=== PATIENT | female | born 1980 | race Caucasian/White ===

== ENCOUNTER → 2023-01-05 | Outpatient (CLI) | payer MEDICAID | LOC: M WHC 11:36 | PROVIDERS: ATTEND Nurse Practitioner Family | DX: Z12.31 Encounter for screening mammogram for malignant neoplasm of breast (principal) ==

== ENCOUNTER → 2023-01-15 | Outpatient (CLI) | payer MEDICAID | LOC: M WHC 08:19 | PROVIDERS: ATTEND Nurse Practitioner Family | DX: R92.8 Other abnormal and inconclusive findings on diagnostic imaging of breast (principal); N60.02 Solitary cyst of left breast ==

== ENCOUNTER → 2023-01-20 | Outpatient (REF) | payer MEDICAID ==
[2023-01-20 17:26] LABS: BASO # 0.1 10^3/uL (0.0-0.2); BASO % 0.7 % (0.0-1.0); EOS # 0.2 10^3/uL (0.0-0.5); EOS % 2.2 % (0.0-3.0); HEMATOCRIT 42.6 % (36.0-47.0); HEMOGLOBIN 14.7 g/dl (12.0-15.5); LYMPH # 2.7 10^3/uL (1.5-5.0); LYMPH % 35.8 % (24.0-44.0); MEAN CORPUSCULAR HEMOGLOBIN 30.9 pg (27.0-33.0); MEAN CORPUSCULAR HGB CONC 34.5 g/dl (32.0-36.5); MEAN CORPUSCULAR VOLUME 89.5 fl (80.0-96.0); MONO # 0.6 10^3/uL (0.0-0.8); MONO % 8.6 % (2.0-8.0); NEUTROPHILS # 3.9 10^3/uL (1.5-8.5); NEUTROPHILS % 51.9 % (36.0-66.0); PLATELET COUNT, AUTOMATED 199 10^3/uL (150-450); RED BLOOD COUNT 4.76 10^6/uL (4.00-5.40); WHITE BLOOD COUNT 7.4 10^3/uL (4.0-10.0)
[2023-01-20 17:30] LABS: BLOOD UREA NITROGEN 11 MG/DL (9-23); CALCIUM LEVEL 8.8 MG/DL (8.5-10.1); CARBON DIOXIDE LEVEL 27 MMOL/L (20-31); CHLORIDE LEVEL 104 MMOL/L (98-107); CHOLESTEROL LEVEL 161 MG/DL (<200); CHOLESTEROL RISK RATIO 4.87 (<5); CREATININE FOR GFR 0.83 MG/DL (0.55-1.30); GLOMERULAR FILTRATION RATE > 60.0 (>58); GLUCOSE, FASTING 130 MG/DL (60-100); LDL CHOLESTEROL 93.6 MG/DL (<100); POTASSIUM SERUM 3.8 MMOL/L (3.5-5.1); SODIUM LEVEL 141 MMOL/L (136-145); TRIGLYCERIDES LEVEL 172 MG/DL (<150)
[2023-01-20 17:32] LABS: TOTAL 25(OH) VITAMIN D 48.1 NG/ML (20.0-100.0)
[2023-01-20 17:33] LABS: THYROID STIMULATING HORMONE 1.409 uIU/ML (0.55-4.78)
[2023-01-20 17:45] LABS: HEMOGLOBIN A1c 5.8 % (4.0-6.0)
== END ==
LOC: M LAB REF 16:37
PROVIDERS: ATTEND Nurse Practitioner Family
DX: Z11.9 Encounter for screening for infectious and parasitic diseases, unspecified (principal); E55.9 Vitamin D deficiency, unspecified; F41.8 Other specified anxiety disorders; R03.0 Elevated blood-pressure reading, without diagnosis of hypertension; R53.83 Other fatigue

== ENCOUNTER → 2023-04-28 | Outpatient (REF) | payer MEDICAID ==
[2023-04-28 21:26] LABS: CHLAMYDIA DNA AMPLIFICATION NEGATIVE (NEGATIVE); GC DNA AMPLIFICATION NEGATIVE (NEGATIVE)
== END ==
LOC: M SFHCWAGY 16:54
PROVIDERS: ATTEND Nurse Practitioner Family
DX: N73.9 Female pelvic inflammatory disease, unspecified (principal)

== ENCOUNTER → 2023-05-15 | Outpatient (REF) | payer MEDICAID ==
[2023-05-15 14:46] LABS: CHLAMYDIA DNA AMPLIFICATION NEGATIVE (NEGATIVE); GC DNA AMPLIFICATION NEGATIVE (NEGATIVE)
== END ==
LOC: M LAB REF 12:44
PROVIDERS: ATTEND Nurse Practitioner Family
DX: A59.00 Urogenital trichomoniasis, unspecified (principal)

== ENCOUNTER → 2023-07-14 | Outpatient (CLI) | payer MEDICAID | LOC: M WUC 11:51 | PROVIDERS: ATTEND Nurse Practitioner Family | DX: B34.9 Viral infection, unspecified (principal) ==

== ENCOUNTER → 2023-07-30 | Outpatient (REF) | payer MEDICAID ==
[2023-07-30 19:47] LABS: Trichomonas vaginalis (AMP) NOT DETECTED (NEGATIVE)
[2023-07-30 20:11] LABS: GC DNA AMPLIFICATION NEGATIVE (NEGATIVE)
== END ==
LOC: M SFHCWAGY 17:05
PROVIDERS: ATTEND Nurse Practitioner Family
DX: Z11.3 Encounter for screening for infections with a predominantly sexual mode of transmission (principal)

== ENCOUNTER → 2023-09-15 | Outpatient (REF) | payer MEDICAID | LOC: M LAB REF 11:47 | PROVIDERS: ATTEND Nurse Practitioner Family | DX: J06.9 Acute upper respiratory infection, unspecified (principal) ==

== ENCOUNTER 2023-10-07 09:50 | Emergency (ER) | payer MEDICAID ==
[~2023-10-07] VITALS: Ht 157.5 cm; Wt 94.9 kg
[2023-10-07] MEDS ORDERED: ACET-683 PO (10:03)
[2023-10-07] MEDS ORDERED: BUPR-597 PO (10:03)
[2023-10-07] MEDS ORDERED: AMLO1TAB24 PO (10:03)
[2023-10-07 12:03] LABS: BASO # 0.1 10^3/uL (0.0-0.2); BASO % 0.6 % (0.0-1.0); EOS # 0.2 10^3/uL (0.0-0.5); EOS % 2.2 % (0.0-3.0); HEMATOCRIT 43.7 % (36.0-47.0); HEMOGLOBIN 15.1 g/dl (12.0-15.5); LYMPH # 2.9 10^3/uL (1.5-5.0); MEAN CORPUSCULAR HEMOGLOBIN 30.3 pg (27.0-33.0); MEAN CORPUSCULAR HGB CONC 34.6 g/dl (32.0-36.5); MEAN CORPUSCULAR VOLUME 87.8 fl (80.0-96.0); MONO # 0.7 10^3/uL (0.0-0.8); MONO % 8.4 % (2.0-8.0); NEUTROPHILS # 4.4 10^3/uL (1.5-8.5); NEUTROPHILS % 52.2 % (36.0-66.0); PLATELET COUNT, AUTOMATED 196 10^3/uL (150-450); RED BLOOD COUNT 4.98 10^6/uL (4.00-5.40); WHITE BLOOD COUNT 8.3 10^3/uL (4.0-10.0)
[2023-10-07 12:23] LABS: ALBUMIN 3.6 G/DL (3.2-5.2); BILIRUBIN,DIRECT 0.2 MG/DL (<0.4); BILIRUBIN,TOTAL 0.8 MG/DL (0.3-1.2); TOTAL PROTEIN 7.1 G/DL (5.7-8.2)
[2023-10-07] MEDS ORDERED: CIPR-249 PO (13:11)
[2023-10-07 13:20] VITALS: BP 158/90; TEMP 98.3; O2SAT 98
[2023-10-07] MEDS ORDERED: FLON1SPR NARES (13:39)
[2023-10-07] MEDS ORDERED: VITA500C24 PO (13:39)
[2023-10-07] MEDS ORDERED: HOME MED LIST COMPLETE! XX SCH (13:40)
== END 2023-10-07 13:22 | disposition home or self-care (01) ==
LOC: M ED 09:50
DX: N30.90 Cystitis, unspecified without hematuria (principal); I10 Essential (primary) hypertension; F41.9 Anxiety disorder, unspecified; F32.A Depression, unspecified; Z88.0 Allergy status to penicillin; Z79.2 Long term (current) use of antibiotics; Z79.891 Long term (current) use of opiate analgesic; Z79.899 Other long term (current) drug therapy

== ENCOUNTER → 2023-12-21 | Outpatient (CLI) | payer MEDICAID ==
[~2023-12-21] MED LIST: ACET-683 PO; AMLO1TAB24 PO; BUPR-597 PO; CIPR-249 PO; FLON1SPR NARES; VITA500C24 PO
== END ==
LOC: M RAD 10:08
PROVIDERS: ATTEND Nurse Practitioner Family
DX: M79.662 Pain in left lower leg (principal); M79.661 Pain in right lower leg; R60.9 Edema, unspecified; M77.32 Calcaneal spur, left foot

== ENCOUNTER → 2024-01-04 | Outpatient (REF) | payer MEDICAID ==
[2024-01-04 16:53] LABS: APPEARANCE, URINE HAZY (CLEAR); BACTERIA, URINE AUTO 2+ (NEGATIVE); BILIRUBIN, URINE AUTO NEGATIVE (NEGATIVE); BLOOD, URINE BLOOD 1+ (NEGATIVE); COLOR, URINE YELLOW (YELLOW); GLUCOSE, URINE (UA) AUTO 1+ mg/dL (NEGATIVE); KETONE, URINE AUTO NEGATIVE (NEGATIVE); LEUKOCYTE ESTERASE, URINE AUTO 2+ (NEGATIVE); MUCUS, URINE SMALL (NEGATIVE); NITRITE, URINE AUTO POSITIVE (NEGATIVE); PROTEIN, URINE AUTO NEGATIVE (NEGATIVE); RBC, URINE AUTO 7 /HPF (0-3); SPECIFIC GRAVITY URINE AUTO 1.014 (1.002-1.035); SQUAMOUS EPITHELIAL CELL UR AU 3 /HPF (0-6); UROBILINOGEN, URINE AUTO 0.2 mg/dL (0.0-2.0); WBC, URINE AUTO 19 /HPF (0-3)
[2024-01-04 18:18] LABS: Trichomonas vaginalis (AMP) NOT DETECTED (NEGATIVE)
== END ==
LOC: M LAB REF 16:13
PROVIDERS: ATTEND Nurse Practitioner Family
DX: R30.0 Dysuria (principal)

== ENCOUNTER → 2024-01-07 | Outpatient (CLI) | payer MEDICAID | LOC: M WHC 09:20 | PROVIDERS: ATTEND Nurse Practitioner Family | DX: Z12.31 Encounter for screening mammogram for malignant neoplasm of breast (principal); R92.323 Mammographic fibroglandular density, bilateral breasts; R92.8 Other abnormal and inconclusive findings on diagnostic imaging of breast ==

== ENCOUNTER → 2024-01-07 | Outpatient (REF) | payer MEDICAID ==
[2024-01-07 15:08] LABS: Trichomonas vaginalis (AMP) NOT DETECTED (NEGATIVE)
[2024-01-07 15:32] LABS: GC DNA AMPLIFICATION NEGATIVE (NEGATIVE)
[2024-01-09 16:07] LABS: HPV APTIMA Detected (Not Detected)
== END ==
LOC: M SFHCWAGY 12:14
PROVIDERS: ATTEND Nurse Practitioner Family
DX: R30.0 Dysuria (principal); Z12.4 Encounter for screening for malignant neoplasm of cervix

== ENCOUNTER → 2024-02-15 | Outpatient (CLI) | payer MEDICAID | LOC: M WHC 11:20 | PROVIDERS: ATTEND Nurse Practitioner Family | DX: R92.8 Other abnormal and inconclusive findings on diagnostic imaging of breast (principal); N63.41 Unspecified lump in right breast, subareolar ==

== ENCOUNTER → 2024-05-16 | Outpatient (REF) | payer MEDICAID | LOC: M LAB REF 16:33 | PROVIDERS: ATTEND Nurse Practitioner Family | DX: J06.9 Acute upper respiratory infection, unspecified (principal) ==

== ENCOUNTER → 2024-07-08 | Outpatient (REF) | payer MEDICAID ==
[2024-07-08 13:02] LABS: BASO # 0.1 10^3/uL (0.0-0.2); BASO % 0.6 % (0.0-1.0); EOS # 0.1 10^3/uL (0.0-0.5); EOS % 1.7 % (0.0-3.0); HEMOGLOBIN 14.4 g/dl (12.0-15.5); LYMPH # 2.6 10^3/uL (1.5-5.0); LYMPH % 31.2 % (24.0-44.0); MEAN CORPUSCULAR HGB CONC 34.3 g/dl (32.0-36.5); MEAN CORPUSCULAR VOLUME 90.3 fl (80.0-96.0); MONO # 0.8 10^3/uL (0.0-0.8); MONO % 9.2 % (2.0-8.0); NEUTROPHILS # 4.7 10^3/uL (1.5-8.5); NEUTROPHILS % 55.9 % (36.0-66.0); PLATELET COUNT, AUTOMATED 178 10^3/uL (150-450); RED BLOOD COUNT 4.65 10^6/uL (4.00-5.40); WHITE BLOOD COUNT 8.5 10^3/uL (4.0-10.0)
[2024-07-08 13:27] LABS: ALBUMIN 3.7 G/DL (3.2-5.2); ALKALINE PHOSPHATASE 101 U/L (35-104); ALT/SGPT 28 U/L (7.0-40); AST/SGOT 13 U/L (<34); BILIRUBIN,TOTAL 0.4 MG/DL (0.3-1.2); BLOOD UREA NITROGEN 14 MG/DL (9-23); CALCIUM LEVEL 9.2 MG/DL (8.5-10.1); CARBON DIOXIDE LEVEL 28 MMOL/L (20-31); CHLORIDE LEVEL 105 MMOL/L (98-107); CHOLESTEROL LEVEL 189 MG/DL (<200); CHOLESTEROL RISK RATIO 6.27 (<5); GLOMERULAR FILTRATION RATE > 60.0 (>58); GLUCOSE, FASTING 159 MG/DL (60-100); HDL CHOLESTEROL 30.1 MG/DL (>40); LDL CHOLESTEROL 117.3 MG/DL (<100); NON-HDL-C 158.9 MG/DL; POTASSIUM SERUM 4.1 MMOL/L (3.5-5.1); SODIUM LEVEL 141 MMOL/L (136-145); TRIGLYCERIDES LEVEL 208 MG/DL (<150)
== END ==
LOC: M LAB REF 12:25
PROVIDERS: ATTEND Nurse Practitioner Family
DX: E66.9 Obesity, unspecified (principal); F41.8 Other specified anxiety disorders; Z68.36 Body mass index [BMI] 36.0-36.9, adult

== ENCOUNTER → 2024-08-23 | Outpatient (REF) | payer MEDICAID ==
[2024-08-23 17:23] LABS: MAU/CREAT RATIO 42.1 MCG/MG (0.0-30.0)
== END ==
LOC: M LAB REF 15:11
PROVIDERS: ATTEND Nurse Practitioner Family
DX: E11.9 Type 2 diabetes mellitus without complications (principal)

== ENCOUNTER 2024-09-27 15:01 | Emergency (ER) | payer MEDICAID ==
[~2024-09-27] VITALS: Ht 157.5 cm; Wt 92.9 kg
[~2024-09-27 15:01] MED LIST changes: -BUPR-597 PO; +BUPR-766 PO
[2024-09-27 19:58] VITALS: BP 157/94; TEMP 97.4; O2SAT 98
[2024-09-27] MEDS: predniSONE 20 MG TAB PO ONE (20:08)
[2024-09-27] MEDS: methocarbamoL 500 MG TAB PO ONE (20:08)
[2024-09-27] MEDS: KETOROLAC 30 MG/ML 1ML VIAL IM ONE (20:11)
[2024-09-27] MEDS ORDERED: METH-1164 PO (21:04)
[2024-09-27] MEDS ORDERED: NAPR-837 PO (21:04)
== END 2024-09-27 21:09 | disposition home or self-care (01) ==
LOC: M ED 15:01
DX: M54.40 Lumbago with sciatica, unspecified side (principal); I10 Essential (primary) hypertension; F41.9 Anxiety disorder, unspecified; F32.A Depression, unspecified; Z79.899 Other long term (current) drug therapy; Z88.0 Allergy status to penicillin
CPT/HCPCS: 72110; 96372; 99283; J1885; J7512

== ENCOUNTER → 2025-01-19 | Outpatient (CLI) | payer MEDICAID ==
[~2025-01-19] MED LIST changes: +METH-1164 PO; +NAPR-837 PO
== END ==
LOC: M RAD 09:32
PROVIDERS: ATTEND Physical Medicine & Rehabilitation
DX: M54.50 Low back pain, unspecified (principal); R10.9 Unspecified abdominal pain

== ENCOUNTER → 2025-01-24 | Outpatient (CLI) | payer MEDICAID ==
[2025-01-24 14:46] LABS: HIV 1&2 SCREEN NEGATIVE (NEGATIVE)
[2025-01-24 14:54] LABS: HEPATITIS C VIRUS ABY INDEX < 0.02 INDEX (<0.8)
[2025-01-24 15:22] LABS: Trichomonas vaginalis (AMP) NOT DETECTED (NEGATIVE)
[2025-01-24 15:45] LABS: GC DNA AMPLIFICATION NEGATIVE (NEGATIVE)
[2025-01-26 15:47] LABS: HPV APTIMA Not Detected (Not Detected)
== END ==
LOC: M PLALAB 11:00
PROVIDERS: ATTEND Nurse Practitioner Family
DX: Z12.4 Encounter for screening for malignant neoplasm of cervix (principal); R87.610 Atypical squamous cells of undetermined significance on cytologic smear of cervix (ASC-US)

== ENCOUNTER → 2025-01-24 | Outpatient (CLI) | payer MEDICAID | LOC: M WHC 08:34 | PROVIDERS: ATTEND Nurse Practitioner Family | DX: R92.8 Other abnormal and inconclusive findings on diagnostic imaging of breast (principal) ==

== ENCOUNTER 2025-02-01 13:54 | Outpatient (RCR) | payer MEDICAID | END 2025-02-05 | LOC: M PT 13:54 | PROVIDERS: ATTEND Physical Medicine & Rehabilitation | DX: M47.897 Other spondylosis, lumbosacral region (principal); M47.896 Other spondylosis, lumbar region; M51.362 Other intervertebral disc degeneration, lumbar region with discogenic back pain and lower extremity pain ==

== ENCOUNTER → 2025-02-15 | Outpatient (CLI) | payer MEDICAID | LOC: M SLEEP 20:00 | PROVIDERS: ATTEND Physician Assistant | DX: R40.0 Somnolence (principal) ==

== ENCOUNTER → 2025-02-24 | Outpatient (CLI) | payer MEDICAID | LOC: M WHC 08:15 | PROVIDERS: ATTEND Nurse Practitioner Family | DX: T83.32XA Displacement of intrauterine contraceptive device, initial encounter (principal) ==

== ENCOUNTER → 2025-03-27 | Outpatient (REF) | payer MEDICAID | LOC: M SFHCWAGY 15:17 | PROVIDERS: ATTEND Nurse Practitioner Family | DX: L29.2 Pruritus vulvae (principal) ==

== ENCOUNTER → 2025-05-05 | Outpatient (CLI) | payer MEDICAID | LOC: M SLEEP 20:00 | PROVIDERS: ATTEND Physician Assistant | DX: G47.33 Obstructive sleep apnea (adult) (pediatric) (principal) ==